=== PATIENT | female | born 1955 ===

== ENCOUNTER 2024-03-25 12:49 | Outpatient (AMB) | payer MEDICARE, MEDICAID, SELFPAY ==
--- NOTE | 2024-03-25 13:01 | MHC.OFFVIS ---
Vital Signs 03/25/24 13:05 Height 5 ft 1 in Weight 190 lb BMI 35.9 BP 186/89 H Blood Pressure Location Lt brachial Position Sitting Pulse 80 Pulse Source Pulse Oximeter Pulse Oximetry (%) 98 Oxygen Delivery Method Room Air Intake Visit Reasons: Back pain Recreation Officer Required: Yes Recreation Officer Language: South Korean Recreation Officer Name: Provider speaks South Korean HPI HPI Back pain: Details: Patient is a very pleasant 68 years old South Korean-speaking female with prior history of arthritis, lumbar degenerative disc disease, lumbosacral spondylosis, history bilateral total knee replacement, bilateral carpal tunnel release, dental implants, thyroid nodule, uncontrolled diabetes (A1C=9.2), obesity, presents today for initial evaluation of progressively worsening low back pain with bilateral radiculopathy and bilateral flank pain. Denies any past or recent trauma, injury, or falls. She also reports multiple joint pain in both shoulders, hands, and lower extremities and feet. Back pain is localized to the lower spine with bilateral radiating pain into the lower extremities laterally and partially posteriorly. She also presents with bilateral flank pain and states this reminds her when she had kidney stones in the past. Pain is most severe at nighttime and with daily activities or walking which she rates at 8-10/10 and least severe when taking medications which she rates at 2-3/10. Pain interferes with her daily activities and functions and sleeping as well. Denies previous spine surgery or injections. To this point she has not tried any dedicated conservative treatment for low back pain in the forms of physical therapy, chiropractic, TENS unit or injections. She attends regular massage treatments which provide partial but temporary pain relief. At this time she is not able to pursue formal physical therapy due to significant low back and bilateral flank pain. She reports fluctuating fasting blood sugars 120-190's, tries to adhere to ADA diet and has started Ozempic injections 2 years ago with some weight loss. Reports occasional abdominal discomfort, generalized weakness and fatigue. Denies any fever, chills, abdominal or groin pain, bleeding, hematuria, weakness, foot drop, bladder or bowel dysfunction or saddle anesthesia history. Location: Low back pain, multiple joint pain, bilateral flank pain Duration: Chronic pain worsening for 2 years Characteristics of symptom or complaint: Aching, sore, burning, tight, squeezing, radiating, tiring, heavy Aggravating or associated factors: Movements, walking, bending, extending, cold weather Relieving factors: Lidocaine patches, Tylenol, Ibuprofen, Advil, diclofenac gel Treatment: PT 2021, massage therapy [facility] Medical History (Updated 03/25/24 @ 22:13 by GIOVANNI Schwartz) Arthritis Cataracts, bilateral (~2019) Tinnitus, bilateral Thyroid nodule Chronic cough Type 2 diabetes mellitus without complications Radiculopathy, lumbosacral region Surgical History (Updated 03/25/24 @ 22:13 by GIOVANNI Schwartz) History of bilateral carpal tunnel release (~2013) History of total bilateral knee replacement (~2021) History of cataract surgery (~2019) S/p bilateral blepharoplasty (~2019) Social History (Updated 03/25/24 @ 13:11 by Martina Neal) Alcohol intake: never Patient Tobacco Use Status: Never used Tobacco Review of Systems Const All systems reviewed & are unremarkable except as noted in HPI and below Physical Exam Vital Signs: Last Vital Signs Pulse 80 03/25/24 13:05 BP 186/89 H 03/25/24 13:05 Pulse Ox 98 03/25/24 13:05 Oxygen Delivery Method Room Air 03/25/24 13:05 BMI result Body Mass Index 35.9 General: Appears afebrile. Alert and oriented. Mood and affect appropriate. Follows and participates in conversation appropriately. Respiratory effort is unlabored. No cough. Able to transition from sit to stand unassisted. Ambulates with bilaterally normal heel strike and toe off. General: Yes CVA tenderness (mild, bilaterally) Back/Spine/Pelvis Other: Limited lumbar ROM. Mildly antalgic gait. No limping. Can flex forward to 60-70 degrees and extend to 5-10 degrees before experiencing lumbar pain. Demonstrates 5/5 strength of quadriceps bilaterally as well as flexion/dorsiflexion of bilateral feet against resistance. 2+ pedal pulses bilaterally. Seated straight leg rise with dorsiflexion negative bilaterally. +1 patellar and achilles reflexes bilaterally. Facet loading test positive bilaterally. Placido sign, Vladimir?s, [place], Pelvic compression and Stinchfield tests are positive bilaterally. No groin pain with I/E hip rotations. Valsalva maneuver negative. Back: CVA tenderness (mild, bilaterally) Cervical Spine: cervical ROM normal, cervical muscular tenderness and No Cervical spine tenderness Thoracic/Lumbar Spine: thoracic and lumbar spine normal to inspection, No Thoracic/lumbar spine scar(s), Lasegue's sign negative, straight leg raise negative bilaterally, pain with thoraco-lumbar ROM, paraspinal muscle tenderness, thoraco-lumbar ROM limited, No thoracic spinal tenderness and lumbar spinal tenderness Pelvis: buttock tenderness Sacroiliac joints: bilaterally tender to palpation Extrem General: Yes capillary refill normal, Yes no clubbing, cyanosis or edema and Yes no calf tenderness Results Reviewed Results Reviewed: Assessment & Plan Assessment & Plan (1) Bilateral flank pain: Code(s): R10.9 - Unspecified abdominal pain Category: Medical (2) Radiculopathy, lumbosacral region: Code(s): M54.17 - Radiculopathy, lumbosacral region Category: Medical (3) Lumbar degenerative disc disease: Code(s): M51.36 - Other intervertebral disc degeneration, lumbar region Category: Medical (4) Low back pain: Code(s): M54.50 - Low back pain, unspecified Category: Medical (5) Lumbosacral spondylosis: Code(s): M47.817 - Spondylosis without myelopathy or radiculopathy, lumbosacral region Category: Medical (6) Type 2 diabetes mellitus without complications: Code(s): E11.9 - Type 2 diabetes mellitus without complications Category: Medical Plan Patient's back pain consistent with axial, facetogenic and radicular pain components. Discussed interventional treatments, including diagnostic injections for potential peripheral nerve stimulation or RFA procedures. Given elevated A1C levels, patient is not candidate for therapeutic steroidal injections at this time. She has upcoming follow-up with your PCP to recheck A1C levels. Patient declined back injections at this time due to significant bilateral flank pain. We will obtain bilateral renal ultrasound to follow-up for this. Scripts provided for B1 vitamin. Patient also states taking B6 and B12 vitamins at home. She is encourage for adequate daily hydration, daily physical activity, good posture, weight optimization and well balanced diet. If questions and concerns have been answered and patient agrees with the treatment plan. Follow-up for renal US results and sooner as needed. Orders: Orders US renal BI 03/25/24 R10.9 - Unspecified abdominal pain Medications: New benfotiamine 150 mg PO BID 60 caps 0RF 30 days E11.9 - Type 2 diabetes mellitus without complications Coding Level of Care Code New Pt Level 4 (62438) Diagnoses Bilateral flank pain R10.9 Radiculopathy, lumbosacral region M54.17 Lumbar degenerative disc disease M51.36 Low back pain M54.50 Lumbosacral spondylosis M47.817 Type 2 diabetes mellitus without complications E11.9
[2024-03-25 13:05] VITALS: BP 186/89; PULSE 80; O2SAT 98; BMI 35.9
== END 2024-03-25 14:14 | disposition home or self-care (01) ==
PROVIDERS: PCP Physician Assistant; Referring Provider Physician Assistant; Visit Provider Nurse Practitioner Family
DX: R10.9 Unspecified abdominal pain (principal); M54.17 Radiculopathy, lumbosacral region; M51.36 Other intervertebral disc degeneration, lumbar region; M54.50 Low back pain, unspecified; M47.817 Spondylosis without myelopathy or radiculopathy, lumbosacral region; E11.9 Type 2 diabetes mellitus without complications
CPT/HCPCS: 99204

== ENCOUNTER → 2024-03-25 12:49 | Outpatient (BNVA) | payer MEDICARE, MEDICAID, SELFPAY | PROVIDERS: PCP Physician Assistant; Referring Provider Physician Assistant; Visit Provider Nurse Practitioner Family | DX: R10.9 Unspecified abdominal pain (principal); M47.27 Other spondylosis with radiculopathy, lumbosacral region; M51.36 Other intervertebral disc degeneration, lumbar region; M54.50 Low back pain, unspecified; E11.9 Type 2 diabetes mellitus without complications | CPT/HCPCS: 99202 ==

== ENCOUNTER 2024-04-08 12:27 | Outpatient (REF) | payer MEDICARE, MEDICAID, SELFPAY ==
--- NOTE | ~2024-04-08 | US_ITS ---
EXAMINATION: US RETROPERITONEAL LIMITED (RENAL ONLY) CLINICAL INFORMATION: Bilateral flank pain. COMPARISON: CT abdomen and pelvis 12/28/2020. TECHNIQUE: Real-time imaging of the kidneys. FINDINGS: RIGHT KIDNEY: 13.8 x 4.7 x 5.3 cm (SAG x AP x TRV). Kidneys normal in size and echogenicity with lobulated contour. Renal cortical thickness is normal. No hydronephrosis. There are 2 echogenic stones are seen within the upper and lower poles measuring 2 to 3 mm in size. There is a complex cyst in the mid pole measuring 1.8 x 1.3 x 1.2 cm which demonstrates thickened wall calcification, Bosniak 2F. There is a smaller cyst in the upper pole measuring 8 x 7 x 8 mm which also demonstrates a small area of wall calcification, Bosniak 2. LEFT KIDNEY: 13.1 x 5.3 x 5.1 cm (SAG x AP x TRV). The kidney is normal in size, contour, and echogenicity. Renal cortical thickness is normal. There is minimal caliectasis within the left kidney. No renal calculi or hydronephrosis. There is a simple cyst in the upper pole measuring 1.2 x 0.9 x 0.9 cm. No follow-up indicated. US/US renal BI IMPRESSION: 1. Nonobstructing right renal calculi. 2. Complex cysts in the right kidney with wall calcification. These are not clearly identified on the prior CT scan. Recommend follow-up examination in 6 months 3. Minimal caliectasis in the left kidney. No hydronephrosis or calcified stones Electronically signed by: Collin Willams MD 04/08/2024 04:04 PM EDT
== END 2024-04-08 12:28 | disposition home or self-care (01) ==
LOC: HO.US 12:27
PROVIDERS: PCP Physician Assistant; Visit Provider Nurse Practitioner Family
DX: R10.9 Unspecified abdominal pain (principal)
CPT/HCPCS: 76775

== ENCOUNTER 2024-06-08 08:51 | Outpatient (AMB) | payer MEDICARE, MEDICAID, SELFPAY ==
--- NOTE | 2024-06-08 09:12 | A.OFFVIS_ITS ---
Intake Visit Reasons: kidney stone/kidney cyst Intake Note: New Patient presents for initial visit for kidney stone and kidney cyst Urology Medications: none Blood Thinner: none Photographic Reproduction Technician Required: Yes Photographic Reproduction Technician Name: Fidel [email or web address] Accompanied by: Self / Same As Patient Allergies No Known Allergies Allergy (Verified 06/08/24 09:51) Medication List - Last Reconciled 06/08/24 by GIOVANNI Smith-ADAMARIS acetaminophen-codeine 300-15 mg 1 tab PO Q8H PRN 10 days benfotiamine 150 mg PO BID 30 days glipizide-metformin 5-500 mg 1 tab PO BID pantoprazole 40 mg PO DAILY rosuvastatin 10 mg PO BEDTIME semaglutide (Ozempic) mg subcut HPI Comments Details: Heidi is a very pleasant 68-year-old Maldivian speaking patient of Dr. Asher. She has a past medical history of arthritis, bilateral cataracts, thyroid nodule, chronic cough, diabetes, and lumbar sacral region radiculopathy. She presents to the office today as a new patient for nephrolithiasis as well as renal cysts. In discussion with the patient today she reports having followed up with pain management for ongoing right-sided back pain she has been experiencing at which time a renal ultrasound was ordered and performed and patient was noted to have nephrolithiasis and recommendations were made for urology referral for further assessment evaluation. These results were reviewed with the patient today. Nonobstructing right renal calculi measuring 2-3 mm. Complex cyst in the right kidney with wall calcifications. Recommendation for six-month follow-up is being made per radiology report. Left kidney with no hydronephrosis or nephrolithiasis. In discussion with the patient today she continues to report right-sided back pain. On exam no CVA tenderness noted bilaterally. We discussed at length potential causes of nephrolithiasis as well as renal cysts. We discussed further workup to include CT renal mass protocol versus surveillance monitoring. She otherwise denies any bothersome urinary issues. She denies urinary urgency, urinary frequency, incontinence, nocturia, hematuria, dysuria, foul smelling urine, changes to urinary stream, flank pain, fever, and or chills. She is happy with her current voiding parameters. In office urinalysis results reviewed with the patient today. When asked she denies any previous history of nephrolithiasis and or surgical intervention for nephrolithiasis. She otherwise offers no other issues or concerns at this time. COUNTS INCLUDE 234 BEDS AT THE [facility] Medical History Arthritis Cataracts, bilateral (~2019) Tinnitus, bilateral Thyroid nodule Chronic cough Type 2 diabetes mellitus without complications Radiculopathy, lumbosacral region Surgical History History of bilateral carpal tunnel release (~2013) History of total bilateral knee replacement (~2021) History of cataract surgery (~2019) S/p bilateral blepharoplasty (~2019) Social History Alcohol intake: never Patient Tobacco Use Status: Never used Tobacco Review of Systems Const All systems reviewed & are unremarkable except as noted in HPI and below Physical Exam Const General: cooperative, comfortable, no acute distress, well developed, alert and awake Orientation/consciousness: patient oriented x3 HEENT Head: Yes normal to inspection, Yes normocephalic and Yes atraumatic Ears: hearing grossly normal bilaterally Eyes General: appearance normal, both eyes and all related structures Neck Neck: Yes normal visual inspection and Yes trachea midline Chest Chest palpation & inspection: normal inspection of the chest Resp Effort & Inspection: normal respiratory effort and able to speak in complete sentences Cardio Rate: regular rate GI Inspection: Yes normal to inspection General: Yes no CVA tenderness Back/Spine/Pelvis Back: no CVA tenderness Skin General skin exam: no rashes or lesions noted Neuro General: patient oriented x3 Extrem General: Yes normal to inspection Psych Appearance: grossly normal and well kempt Mental Status: mental status grossly normal Speech and movement: Normal speech and movement present and Clear speech present Affect: normal affect Attitude: cooperative Thought process: Normal thought process present Thought content: Normal thought content present Results AMB Urinalysis, Automated UA Leukoctes 70 Cesar/uL Last Edit by Awa Kiser on 06/08/24 09:29 UA Nitrite Negative Last Edit by Awa Kiser on 06/08/24 09:29 UA Urobilinogen 0.2 mg/dL Last Edit by Awa Kiser on 06/08/24 09:29 UA Protein 15 mg/dL Last Edit by Awa Kiser on 06/08/24 09:29 UA pH 6.0 Last Edit by Awa Kiser on 06/08/24 09:29 UA Blood 0 Raj/uL Last Edit by Awa Kiser on 06/08/24 09:29 UA Specific [place] 1.025 Last Edit by Awa Kiser on 06/08/24 09:29 UA Ketone Negative Last Edit by Awa Kiser on 06/08/24 09:29 UA Bilirubin 0 mg/dL Last Edit by Awa Kiser on 06/08/24 09:29 UA Glucose 0 mg/dL Last Edit by Awa Kiser on 06/08/24 09:29 Results Reviewed Results Reviewed: Laboratory Last Values Urine pH (Auto) 6.0 06/08/24 09:28 Specific [place] (Auto) 1.025 06/08/24 09:28 Urine Protein (Auto) 15 mg/dL 06/08/24 09:28 Glucose (UA)(Auto) 0 mg/dL 06/08/24 09:28 Urine Ketones (Auto) Negative 06/08/24 09:28 Urine Blood (Auto) 0 Raj/uL 06/08/24 09:28 Urine Nitrite (Auto) Negative 06/08/24 09:28 Urine Bilirubin (Auto) 0 mg/dL 06/08/24 09:28 Urine Urobilinogen (Auto) 0.2 mg/dL 06/08/24 09:28 Leukocyte Esterase (Auto) 70 Cesar/uL 06/08/24 09:28 Date of Service: 04/08/24 EXAMINATION: US RETROPERITONEAL LIMITED (RENAL ONLY) FINDINGS: RIGHT KIDNEY: 13.8 x 4.7 x 5.3 cm (SAG x AP x TRV). Kidneys normal in size and echogenicity with lobulated contour. Renal cortical thickness is normal. No hydronephrosis. There are 2 echogenic stones are seen within the upper and lower poles measuring 2 to 3 mm in size. There is a complex cyst in the mid pole measuring 1.8 x 1.3 x 1.2 cm which demonstrates thickened wall calcification, Bosniak 2F. There is a smaller cyst in the upper pole measuring 8 x 7 x 8 mm which also demonstrates a small area of wall calcification, Bosniak 2. LEFT KIDNEY: 13.1 x 5.3 x 5.1 cm (SAG x AP x TRV). The kidney is normal in size, contour, and echogenicity. Renal cortical thickness is normal. There is minimal caliectasis within the left kidney. No renal calculi or hydronephrosis. There is a simple cyst in the upper pole measuring 1.2 x 0.9 x 0.9 cm. No follow-up indicated. IMPRESSION: 1. Nonobstructing right renal calculi. 2. Complex cysts in the right kidney with wall calcification. These are not clearly identified on the prior CT scan. Recommend follow-up examination in 6 months 3. Minimal caliectasis in the left kidney. No hydronephrosis or calcified stones Assessment & Plan Assessment & Plan (1) Renal calculi: Code(s): N20.0 - Calculus of kidney Category: Medical (2) Complex renal cyst: Code(s): N28.1 - Cyst of kidney, acquired Category: Medical Plan In office urinalysis results reviewed with the patient today; as noted above. Recent renal imaging results reviewed with the patient today; as noted above. Will obtain CT renal mass protocol for further assessment evaluation. BUN and creatinine ordered for imaging. Discussed at length potential causes of nephrolithiasis as well as renal cysts; we discussed classifications of renal cysts. All questions were answered. Discussed, educated, and stressed the importance of adequate hydration relation to nephrolithiasis as well as overall health and well-being. Discussed near future metabolic workup to include 24 hour urine collection and labs. Follow-up in 1-3 months with imaging and labs to be completed prior; or sooner with any issues, concerns, and or questions. Orders: Orders Blood Urea Nitrogen Today R39.15 - Urgency of urination AMB Urinalysis Automated Today Z13.9 - Encounter for screening, unspecified CT abdomen pelvis wo/w IV con Today N28.1 - Cyst of kidney, acquired Creatinine Today R39.15 - Urgency of urination Patient Instructions: The patient had an opportunity to ask questions regarding the treatment plan. All questions were answered. Physical exam, labs, and imaging were discussed and reviewed in detail. As well as risks, benefits, and discussion of treatment choices. No major barriers to understanding were identified. The patient expressed understanding and agreement with the above treatment plan. The patient was made aware they should contact our office by phone for worsening of their current condition, the appearance of new symptoms, or with any questions or concerns. Compliance is encouraged with any medications and follow up testing that is ordered. It is a privilege to be allowed the opportunity to participate in? your urological care.? Again, if you have any questions or concerns If you have any questions or concerns please do not hesitate to contact me. The office is [phone]. This note is constructed using voice recognition software. While every effort has been made to ensure accuracy brim blocker errors may have been included. Yours sincerely, TIBURCIO Smith Coding Level of Care Code New Pt Level 4 (44381) Diagnoses Renal calculi N20.0 Complex renal cyst N28.1 Time Spent (min) 35
== END 2024-06-08 09:53 | disposition home or self-care (01) ==
PROVIDERS: PCP Physician Assistant; Visit Provider Nurse Practitioner Family
DX: N20.0 Calculus of kidney (principal); N28.1 Cyst of kidney, acquired; Z13.9 Encounter for screening, unspecified
CPT/HCPCS: 99204

== ENCOUNTER → 2024-06-08 08:51 | Outpatient (BNVA) | payer MEDICARE, MEDICAID, SELFPAY | PROVIDERS: PCP Physician Assistant; Visit Provider Nurse Practitioner Family | DX: N20.0 Calculus of kidney (principal); N28.1 Cyst of kidney, acquired; R39.15 Urgency of urination | CPT/HCPCS: 81003; 99202 ==

== ENCOUNTER 2024-08-05 09:11 | Outpatient (REF) | payer MEDICARE, MEDICAID, SELFPAY ==
--- NOTE | ~2024-08-05 | CT_ITS ---
EXAMINATION: CT ABDOMEN PELVIS WITHOUT THEN WITH IV CONTRAST HISTORY: N28.1 - Cyst of kidney, acquired COMPARISON: Correlation is made with a renal ultrasound dated 04/08/2024. TECHNIQUE: CT scan of the abdomen and pelvis was performed before and after the intravenous administration of 85 mL Omnipaque 350. Postcontrast images were obtained in the nephrographic and delayed phases. Coronal and sagittal reformatted images were generated and reviewed. Oral contrast material was not administered per department protocol. This CT exam was performed with one or more of the following dose reduction techniques: automated exposure control, adjustment of the mA and/or kV according to patient size, use of iterative reconstruction technique. DLP: 678 mGy-cm ABDOMEN: LOWER CHEST: The visualized lung bases are clear. There is no pleural effusion. CARDIOVASCULATURE: The heart is normal in size. There is no pericardial effusion. LIVER: The liver is normal in size and contour. No liver mass is identified. The hepatic and portal veins are patent. GALLBLADDER / BILE DUCTS: The gallbladder is unremarkable. There is no intra or extrahepatic biliary ductal dilatation. SPLEEN: The spleen is normal in size. No focal splenic lesion is identified. PANCREAS: The pancreas is unremarkable in appearance. ADRENAL GLANDS: Within normal limits. KIDNEYS/RETROPERITONEUM: The kidneys demonstrate lobulated contours. There are partially duplicated bilateral renal collecting systems. There is a punctate nonobstructing calculus in the interpolar calyx of the left kidney. No right renal calculi are identified. There is no hydronephrosis. There is a 1.3 cm cyst in the interpolar region of the right kidney and a 1.1 cm cyst at the upper pole of the left kidney. There is no associated wall calcification. Additional tiny hypodense foci in both kidneys likely represent cysts but are too small to accurately characterize. LYMPH NODES: No abdominal or pelvic lymphadenopathy. VASCULATURE: The abdominal aorta is normal in caliber. MESENTERY/PERITONEUM: No free fluid. No masses. There is no free intraperitoneal gas. STOMACH: The stomach is collapsed, limiting evaluation. SMALL BOWEL: The small bowel is normal in caliber. COLON: There is a moderate amount of stool throughout the colon. There is a metallic marker in the cecum. APPENDIX: Normal. URINARY BLADDER/PELVIC ORGANS: The urinary bladder is nondistended, limiting evaluation. The patient is status post hysterectomy. BONES / SOFT TISSUES: There is degenerative disc disease of the spine. CT/CT abdomen pelvis wo/w IV con IMPRESSION: Punctate nonobstructing left renal calculus. Bilateral renal cysts as described. No associated wall calcification is identified on CT. Electronically signed by: Junior Campbell MD 08/09/2024 08:46 AM EST
[2024-08-05] MEDS: iohexoL 350 MG/ML 100 ML INFUS..BTL 85 ML IV (09:51)
[2024-08-06 09:00] LABS: Creatinine POC 0.8 mg/dL (0.5-1.4); GFR POC > 60
== END 2024-08-05 09:12 | disposition home or self-care (01) ==
LOC: HO.CT 09:11
PROVIDERS: PCP Physician Assistant; Visit Provider Nurse Practitioner Family
DX: N28.1 Cyst of kidney, acquired (principal)
CPT/HCPCS: 74178; 82565; Q9967

== ENCOUNTER → 2024-08-05 09:14 | Outpatient (BNV) | payer MEDICARE, MEDICAID, SELFPAY | PROVIDERS: PCP Physician Assistant; Visit Provider Radiology Diagnostic Radiology | DX: N20.0 Calculus of kidney (principal); N28.1 Cyst of kidney, acquired | CPT/HCPCS: 74178 ==

== ENCOUNTER 2024-08-10 08:40 | Outpatient (AMB) | payer MEDICARE, MEDICAID, SELFPAY ==
--- NOTE | 2024-08-10 08:42 | MHC.OFFVIS ---
Intake Visit Reasons: 2M CT/Creatinine(Set) Intake Note: Patient is Present for Telephone Follow Up For CT Scan/Creatinine Urology Med: None Antibiotic Allergy: None Blood Thinner: None Patient reports some pain and discomfort Athletic Turf Worker Required: Yes Athletic Turf Worker Language: Moldovan Athletic Turf Worker Name: [id number] cely Accompanied by: Self / Same As Patient Allergies No Known Allergies Allergy (Verified 08/10/24 08:56) Medication List - Last Reconciled 08/10/24 by GIOVANNI Smith-ADAMARIS acetaminophen-codeine 300-15 mg 1 tab PO Q8H PRN 10 days benfotiamine 150 mg PO BID 30 days glipizide-metformin 5-500 mg 1 tab PO BID pantoprazole 40 mg PO DAILY rosuvastatin 10 mg PO BEDTIME semaglutide (Ozempic) mg subcut HPI Comments Details: Heidi is a very pleasant 68-year-old Moldovan speaking patient of Dr. Asher. She has a past medical history of arthritis, bilateral cataracts, thyroid nodule, chronic cough, diabetes, and lumbar sacral region radiculopathis. She is being followed up on today via telehealth. Of note, patient was seen approximately 2 months ago as a new patient for nephrolithiasis as well as renal cyst at which time a CT was ordered for further assessment evaluation. These results reviewed with the patient today. There is punctate nonobstructing calculus in the interpolar calyx of the left kidney. No right renal calculi are identified. There is no hydronephrosis. There is a 1.3 cm cyst in the interpolar region of the right kidney and a 1.1 cm cyst at the upper pole of the left kidney. There is no associated wall calcification. Additional tiny hypodense foci in both kidneys likely represent cysts but are too small to accurately characterize. In discussion with the patient today she reports to be doing and feeling well. She reports episodes of right-sided back pain she had been experiencing have subsided. We discussed at length potential causes of nephrolithiasis as well as renal cysts. We discussed surveillance monitoring. She otherwise denies any bothersome urinary issues. She denies urinary urgency, urinary frequency, incontinence, nocturia, hematuria, dysuria, foul smelling urine, changes to urinary stream, flank pain, fever, and or chills. She is happy with her current voiding parameters. When asked she denies any previous history of nephrolithiasis and or surgical intervention for nephrolithiasis. She otherwise offers no other issues or concerns at this time. COUNTS INCLUDE 234 BEDS AT THE [facility] Medical History Arthritis Cataracts, bilateral (~2019) Tinnitus, bilateral Thyroid nodule Chronic cough Type 2 diabetes mellitus without complications Radiculopathy, lumbosacral region Surgical History History of bilateral carpal tunnel release (~2013) History of total bilateral knee replacement (~2021) History of cataract surgery (~2019) S/p bilateral blepharoplasty (~2019) Social History Alcohol intake: never Patient Tobacco Use Status: Never used Tobacco Review of Systems Const All systems reviewed & are unremarkable except as noted in HPI and below Physical Exam Const General: cooperative Resp Effort & Inspection: able to speak in complete sentences Psych Affect: normal affect Attitude: cooperative Thought process: Normal thought process present Thought content: Normal thought content present Insight: Fair insight present (Psych) Judgement: Fair judgement present (Psych) Telehealth Telehealth Telehealth Platform: [employer] Location of provider rendering services: practice address Location of patient: address on file Patient Identification confirmed using: Name, : Yes Telehealth method: voice only Patient verbally consented to treatment: Yes Patient verbally consented to billing insurance company: Yes Patient informed of any privacy concerns related to visit: Yes Minutes spent on Phone/Video with Pt.: 20 Results Reviewed Results Reviewed: Date of Service: 08/05/24 Procedure(s): CT abdomen pelvis wo/w IV con COMPARISON: Correlation is made with a renal ultrasound dated 04/08/2024. TECHNIQUE: CT scan of the abdomen and pelvis was performed before and after the intravenous administration of 85 mL Omnipaque 350. Postcontrast images were obtained in the nephrographic and delayed phases. Coronal and sagittal reformatted images were generated and reviewed. Oral contrast material was not administered per department protocol. This CT exam was performed with one or more of the following dose reduction techniques: automated exposure control, adjustment of the mA and/or kV according to patient size, use of iterative reconstruction technique. ABDOMEN: LOWER CHEST: The visualized lung bases are clear. There is no pleural effusion. CARDIOVASCULATURE: The heart is normal in size. There is no pericardial effusion. LIVER: The liver is normal in size and contour. No liver mass is identified. The hepatic and portal veins are patent. GALLBLADDER / BILE DUCTS: The gallbladder is unremarkable. There is no intra or extrahepatic biliary ductal dilatation. SPLEEN: The spleen is normal in size. No focal splenic lesion is identified. PANCREAS: The pancreas is unremarkable in appearance. ADRENAL GLANDS: Within normal limits. KIDNEYS/RETROPERITONEUM: The kidneys demonstrate lobulated contours. There are partially duplicated bilateral renal collecting systems. There is a punctate nonobstructing calculus in the interpolar calyx of the left kidney. No right renal calculi are identified. There is no hydronephrosis. There is a 1.3 cm cyst in the interpolar region of the right kidney and a 1.1 cm cyst at the upper pole of the left kidney. There is no associated wall calcification. Additional tiny hypodense foci in both kidneys likely represent cysts but are too small to accurately characterize. LYMPH NODES: No abdominal or pelvic lymphadenopathy. VASCULATURE: The abdominal aorta is normal in caliber. MESENTERY/PERITONEUM: No free fluid. No masses. There is no free intraperitoneal gas. STOMACH: The stomach is collapsed, limiting evaluation. SMALL BOWEL: The small bowel is normal in caliber. COLON: There is a moderate amount of stool throughout the colon. There is a metallic marker in the cecum. APPENDIX: Normal. URINARY BLADDER/PELVIC ORGANS: The urinary bladder is nondistended, limiting evaluation. The patient is status post hysterectomy. BONES / SOFT TISSUES: There is degenerative disc disease of the spine. IMPRESSION: Punctate nonobstructing left renal calculus. Bilateral renal cysts as described. No associated wall calcification is identified on CT. Assessment & Plan Assessment & Plan (1) Complex renal cyst: Code(s): N28.1 - Cyst of kidney, acquired Category: Medical (2) Renal calculi: Code(s): N20.0 - Calculus of kidney Category: Medical Plan Recent CT results reviewed with the patient today; as noted above. We discussed potential causes of renal cysts as well as nephrolithiasis. Patient currently denies any bothersome urinary issues or concerns. She reports be happy with current voiding parameters. Discussed, educated, and stressed the importance of adequate hydration relation to nephrolithiasis as well as overall health and well-being. Will continue with surveillance monitoring. Will obtain renal ultrasound in 1 year. Follow-up in 1 year with imaging to be completed prior; or sooner with any issues, concerns, and or questions. Orders: Orders US renal BI 1 Year N20.0 - Calculus of kidney, N28.1 - Cyst of kidney, acquired Patient Instructions: The patient had an opportunity to ask questions regarding the treatment plan. All questions were answered. Physical exam, labs, and imaging were discussed and reviewed in detail. As well as risks, benefits, and discussion of treatment choices. No major barriers to understanding were identified. The patient expressed understanding and agreement with the above treatment plan. The patient was made aware they should contact our office by phone for worsening of their current condition, the appearance of new symptoms, or with any questions or concerns. Compliance is encouraged with any medications and follow up testing that is ordered. It is a privilege to be allowed the opportunity to participate in? your urological care.? Again, if you have any questions or concerns If you have any questions or concerns please do not hesitate to contact me. The office is [phone]. This note is constructed using voice recognition software. While every effort has been made to ensure accuracy osha inspector errors may have been included. Yours sincerely, TIBURCIO Smith Coding Level of Care Code Tele Est Pt Level 3 (30743) Diagnoses Complex renal cyst N28.1 Renal calculi N20.0
== END 2024-08-10 09:18 | disposition home or self-care (01) ==
LOC: HO.HUSH 08:40
PROVIDERS: PCP Physician Assistant; Visit Provider Nurse Practitioner Family
DX: N28.1 Cyst of kidney, acquired (principal); N20.0 Calculus of kidney
CPT/HCPCS: 98016

== ENCOUNTER → 2024-08-10 08:40 | Outpatient (BNVA) | payer MEDICARE, MEDICAID, SELFPAY | PROVIDERS: PCP Physician Assistant; Visit Provider Nurse Practitioner Family ==